=== PATIENT | male | born 1960 | race Caucasian/White ===

== ENCOUNTER 2018-12-11 13:05 | Observation (INO) ==
[2018-12-11 13:33] LABS: Basophils # 0.1 K/mcL (0.0-0.2); Basophils % 0.5 %; Eosinophils # 0.1 K/mcL (0.0-0.6); Eosinophils % 0.5 %; Hematocrit 43.6 % (37.5-50.1); Hemoglobin 14.6 g/dL (12.9-16.9); Immature Granulocytes % 0.3 % (0-4); Lymphocytes # 1.7 K/mcL (0.6-4.6); Lymphocytes % 13.8 %; Mean Corpuscular HGB Conc 33.5 g/dL (31.6-35.5); Mean Corpuscular Hemoglobin 29.1 pg (28.0-33.3); Mean Platelet Volume 11.8 fL (9.4-12.4); Monocytes # 0.5 K/mcL (0.0-1.3); Monocytes % 4.4 %; Neutrophils # 9.7 K/mcL (1.6-8.9); Platelet Count 236 K/mcL (140-400); Red Blood Count 5.01 M/mcL (4.19-5.50); Red Cell Distribution Width 15.8 % (11.5-14.5); Segmented Neutrophils % 80.5 %; White Blood Count 12.1 K/mcL (4.3-11.1)
[2018-12-11 13:56] LABS: BUN/Creatinine Ratio 14 (6-26); Blood Urea Nitrogen 11 mg/dL (6-20); Calcium 9.2 mg/dL (8.6-10.3); Carbon Dioxide 24 mEq/L (23-29); Chloride 107 mEq/L (98-107); Glucose 137 mg/dL (70-105); Osmolality,Calculated 288 (280-300); Sodium 138 mEq/L (136-145); eGFR For African Americans > 60 (> 60); eGFR For Non-African Americans > 60 (> 60)
[2018-12-11 13:57] LABS: Troponin I < 0.03 ng/mL (< 0.04)
[2018-12-11] MEDS ORDERED: Nitroglycerin 0.4 MG TAB.SUBL SL PRN (14:13)
[2018-12-11] MEDS ORDERED: Aspirin 81 MG TAB.CHEW PO STA (14:55)
[2018-12-11] MEDS ORDERED: Ondansetron ODT 4 MG TAB.RAPDIS SL PRN (16:15)
[2018-12-11] MEDS ORDERED: Naloxone 0.4 MG/ML INJ IVP PRN (16:15)
[2018-12-11] MEDS ORDERED: Acetaminophen 325 MG TABLET PO PRN (16:15)
[2018-12-11] MEDS: *HR* HYDROcodone/Acet 5/325 mg TABLET PO PRN (18:18)
[2018-12-11] MEDS ORDERED: Perflutren Lipid Microsphere 1.3 ML in 0.9 % Sodium Chloride 8.7 ML IVP ONE (20:31)
[2018-12-11] MEDS: traZODone 50 MG TABLET PO SCH (20:32)
[2018-12-11] MEDS: Sucralfate 1 GM TABLET PO SCH (20:32)
[2018-12-11] MEDS: Temazepam 15 MG CAPSULE PO SCH (20:32)
[2018-12-12 01:22] LABS: Basophils # 0.1 K/mcL (0.0-0.2); Basophils % 0.6 %; Eosinophils # 0.1 K/mcL (0.0-0.6); Eosinophils % 1.5 %; Hematocrit 40.5 % (37.5-50.1); Hemoglobin 13.4 g/dL (12.9-16.9); Immature Granulocytes % 0.5 % (0-4); Lymphocytes # 2.6 K/mcL (0.6-4.6); Lymphocytes % 33.2 %; Mean Corpuscular HGB Conc 33.1 g/dL (31.6-35.5); Mean Corpuscular Hemoglobin 29.2 pg (28.0-33.3); Mean Corpuscular Volume 88.2 fL (83.0-100.0); Mean Platelet Volume 11.6 fL (9.4-12.4); Monocytes # 0.5 K/mcL (0.0-1.3); Monocytes % 6.1 %; Neutrophils # 4.6 K/mcL (1.6-8.9); Platelet Count 208 K/mcL (140-400); Red Blood Count 4.59 M/mcL (4.19-5.50); Red Cell Distribution Width 15.9 % (11.5-14.5); Segmented Neutrophils % 58.1 %; White Blood Count 7.9 K/mcL (4.3-11.1)
[2018-12-12 01:32] LABS: BUN/Creatinine Ratio 13 (6-26); Blood Urea Nitrogen 13 mg/dL (6-20); Calcium 8.8 mg/dL (8.6-10.3); Carbon Dioxide 27 mEq/L (23-29); Chloride 107 mEq/L (98-107); Chol/HDL Ratio 4.1 (0-4.9); Cholesterol 126 mg/dL (< 200); Glucose 162 mg/dL (70-105); HDL Cholesterol 31 mg/dL (40-59); LDL Cholesterol,Calculated 70 mg/dL (0-99); Magnesium 1.9 mg/dL (1.6-2.6); Osmolality,Calculated 294 (280-300); Potassium 3.6 mEq/L (3.5-5.1); Sodium 140 mEq/L (136-145); Triglycerides 124 mg/dL (< 150); eGFR For African Americans > 60 (> 60); eGFR For Non-African Americans > 60 (> 60)
[2018-12-12] MEDS: *HR* HYDROcodone/Acet 5/325 mg TABLET PO PRN ×2 (11:17→16:11)
[2018-12-12] MEDS ORDERED: Regadenoson 0.4 MG/5 ML SYRINGE IVP ONE (12:53)
[2018-12-12] MEDS: Sucralfate 1 GM TABLET PO SCH ×2 (16:02→19:32)
[2018-12-12] MEDS: lamoTRIgine 25 MG TABLET PO SCH (16:10)
[2018-12-12] MEDS: Aspirin 81 MG TAB.CHEW PO SCH (16:11)
[2018-12-12] MEDS: amLODIPine 5 MG TABLET PO SCH (16:11)
[2018-12-12] MEDS: *HR* OxyCODONE Immed Rel 5 MG TABLET PO PRN ×2 (17:04→23:22)
[2018-12-12] MEDS: Temazepam 15 MG CAPSULE PO SCH (19:32)
[2018-12-12] MEDS: traZODone 50 MG TABLET PO SCH (19:32)
[2018-12-13] MEDS: amLODIPine 5 MG TABLET PO SCH (09:53)
[2018-12-13] MEDS: lamoTRIgine 25 MG TABLET PO SCH (09:53)
[2018-12-13] MEDS: *HR* OxyCODONE Immed Rel 5 MG TABLET PO PRN ×2 (09:53→15:12)
[2018-12-13] MEDS: Sucralfate 1 GM TABLET PO SCH (09:54)
[2018-12-13] MEDS: Aspirin 81 MG TAB.CHEW PO SCH (09:54)
[2018-12-13] MEDS ORDERED: *HR* Midazolam HCl 2 MG/2 ML VIAL ONE (12:25)
[2018-12-13] MEDS ORDERED: Nitroglycerin 1,000 MCG/10 ML VIAL IV ONE (12:26)
[2018-12-13] MEDS ORDERED: Heparin 1,000 UNITS/500 mL 500 ML ONE (12:26)
[2018-12-13] MEDS ORDERED: ISOVUE-370 200 ML INFUS..BTL ONE (12:26)
[2018-12-13] MEDS ORDERED: 0.9 % Sodium Chloride 2,000 ML ONE (12:26)
[2018-12-13] MEDS ORDERED: *HR* Heparin 10,000 UNIT/10 ML VIAL ONE (12:26)
[2018-12-13] MEDS ORDERED: Verapamil 5 MG/2 ML VIAL ONE (12:27)
[2018-12-13 15:51] VITALS: BP 144/70
== END 2018-12-13 18:18 | disposition home or self-care (01) ==
LOC: 3BNU 13:05 → EMEROOARM 13:05 → 3BNU 16:02
PROVIDERS: ADMIT Internal Medicine; ATTEND Internal Medicine